=== PATIENT | female | born 1995 | race Caucasian/White ===

== ENCOUNTER 2021-02-05 00:35 | Emergency (ER) | payer OTHER ==
[~2021-02-05] VITALS: Ht 160 cm; Wt 86.2 kg
[2021-02-05 00:43] VITALS: BP 123/95
== END 2021-02-05 01:01 | disposition left against medical advice (07) ==
LOC: ER 00:37
DX: K08.89 Other specified disorders of teeth and supporting structures (principal); Z53.21 Procedure and treatment not carried out due to patient leaving prior to being seen by health care provider

== ENCOUNTER 2023-12-28 12:15 | Observation (INO) | payer SELFPAY ==
--- NOTE | 2023-12-28 13:22 | DVH ---
BIOPHYSICAL PROFILE HISTORY: Decreased movement TECHNIQUE: Multiple transabdominal real-time grayscale sonographic images through the gravid uterus of the fetus with duplex Doppler color flow and M-mode spectral analysis FINDINGS: BIOPHYSICAL PROFILE: breathing score: 2 movement score: 2 tone score: 2 Quantitative ALEX score: 2 (ALEX: 17.3 Cm.) Total score: 8/8 Single live fetus in cephalic presentation. heart rate 144 beats per minute. Anterior placenta without previa or abruption. Placental calcifications are noted. IMPRESSION: 1. Biophysical profile score: 8/8 HS:Y
--- NOTE | 2023-12-28 13:32 | DVH ---
LIMITED OB ULTRASOUND > 14 WKS: HISTORY: NO care TECHNIQUE: Multiple real-time grayscale images of the gravid uterus with duplex Doppler color flow an d M-mode spectral analysis. TRANSDUCER: Transabdominal COMPARISON: None FINDINGS: IUP single live fetus at 36 weeks and 0 days based on composite averages of the BPD, head circumferen ce, abdominal circumference and femur length Estimated weight 2702 grams heart rate 150 beats per minute ALEX 17.3 cm Cervix is not visualized Cephalic Presentation Grade 3, anterior Placenta without previa or abruption. IMPRESSION: IUP single live fetus at 36 weeks and 0 days AUA corresponding to an GREGORIO of 01/25/2024
[2023-12-28 13:57] LABS: Urine Bacteria None Seen /hpf (None Seen)
[2023-12-28 14:06] LABS: Basophils # (auto) 0 10 ^3/uL (0-0.2); Basophils % (auto) 0.3 % (0.0-2.0); Eosinophils # (auto) 0 10 ^3/uL (0-0.8); Eosinophils % (auto) 0.3 % (0.0-7.0); Hematocrit 34.4 % (36.0-46.0); Hemoglobin 11.4 g/dL (12.2-16.2); Lymphocytes # (auto) 1.1 10 ^3/uL (0.4-5.4); Lymphocytes % (auto) 10.6 % (10.0-50.0); Mean Corpuscular Hemoglobin 27.5 pg (28.0-32.0); Mean Corpuscular Volume 83.4 fL (80.0-100.0); Monocytes # (auto) 0.8 10 ^3/uL (0-1.3); Monocytes % (auto) 7.7 % (0.0-12.0); Neutrophils # (auto) 8.6 10 ^3/uL (1.6-8.6); Neutrophils % (auto) 81.1 % (37.0-80.0); Platelet Count (auto) 277 10^3/uL (140-450); Red Blood Cells 4.13 10^6/uL (4.0-5.20); White Blood Cell 10.6 10^3/uL (4.4-10.8)
[2023-12-28 14:19] LABS: Alanine Aminotransferase 10 U/L (7-40); Alkaline Phosphatase 156 U/L (46-116); Anion Gap 9 (5-15); Aspartate Aminotransferase 15 U/L (13-40); BUN/Creatinine Ratio 15.7 (10.0-20.0); Bilirubin, Total 0.5 mg/dL (0.2-1.0); Blood Urea Nitrogen 8 mg/dL (9-23); Calcium 9.5 mg/dL (8.7-10.4); Carbon Dioxide 20 mmol/L (20-31); Chloride 109 mmol/L (98-107); Glucose 86 mg/dL (74-106); Potassium 3.7 mmol/L (3.5-5.1); Sodium 138 mmol/L (136-145); Total Protein 6.3 g/dL (5.7-8.2); Uric Acid 5.6 mg/dL (3.1-7.8)
[2023-12-28 14:23] LABS: INR 0.98 (0.9-1.15); Partial Thromboplastin Time 25.9 SEC (24.5-34.5); Prothrombin Time 10.4 sec (9.3-11.8)
[2023-12-28 14:24] LABS: Urine Blood Negative /uL (Negative); Urine Clarity Turbid (Clear); Urine Color Yellow (Yellow); Urine Mucus FEW (None Seen); Urine Protein, UAD 1+ (Negative); Urine Specific Gravity 1.031 (1.001-1.035); Urine Urobilinogen Normal (Negative); Urine WBC 21 /hpf (0 - 5)
[2023-12-28 14:45] LABS: Amphetamine Screen, Urine Neg (NEGATIVE); Barbiturate Scree,Urine Neg (NEGATIVE); Benzodiazephine Screen, Urine Neg (NEGATIVE); Cannabinoid Screen, Urine Neg (NEGATIVE); Cocaine Screen, Urine Neg (NEGATIVE); Opiate Scree,Urine Neg (NEGATIVE); Phencyclidine Screen, Urine Neg (NEGATIVE)
[2023-12-28] MEDS ORDERED: PREN-96 PO (16:42)
--- NOTE | 2023-12-28 17:13 | DVHDS2 ---
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 Patient was counseled about treatment plan, medications, possible side effects, patientverbalized understanding. All questions were answered to the best of my ability. This discharge took greater then 30 minutes in planning, reviewing d ocumentation, counseling the patient, and discussing with other team members." TASHA MURO DO Dec 28, 2023 17:13
[2023-12-29 07:06] LABS: RPR Non Reactive (Non Reactive)
[2023-12-29 11:07] LABS: Rubella Antibodies, IgG 0.91 index (Immune >0.99)
== END 2023-12-28 16:48 | disposition home or self-care (01) ==
LOC: LDRP 12:15
PROVIDERS: ADMIT Obstetrics & Gynecology; ATTEND Obstetrics & Gynecology
DX: O36.8130 Decreased fetal movements, third trimester, not applicable or unspecified (principal); O47.1 False labor at or after 37 completed weeks of gestation; Z3A.39 39 weeks gestation of pregnancy; Z86.2 Personal history of diseases of the blood and blood-forming organs and certain disorders involving the immune mechanism; Z79.899 Other long term (current) drug therapy
CPT/HCPCS: 36415; 59025; 76805; 76818; 80053; 80307; 81001; 81002; 83036; 84550; 85025; 85610; 85730; 86592; 86703; 86762; 86780; 86803; 86850; 86900; 86901; 87340; 94760; G0378

== ENCOUNTER 2024-01-01 17:35 | Inpatient (IN) | payer MEDICAID ==
[~2024-01-01] VITALS: Ht 162.6 cm; Wt 96.2 kg
[~2024-01-01 17:35] MED LIST: PREN-96 PO
[2024-01-01] MEDS ORDERED: PENICILLIN G POT 5MIL/D5 50ML 50 ML IV ONE (17:45)
[2024-01-01] MEDS ORDERED: LACTATED RINGER'S 1,000 ML IV SCH (17:45)
[2024-01-01] MEDS ORDERED: BUTORPHANOL TARTRATE 2 MG/1 ML VIAL IV PRN ×2 (17:45)
[2024-01-01] MEDS ORDERED: fentaNYL CITRATE 100 MCG/2 ML VL IV ONE (18:00)
[2024-01-01] MEDS ORDERED: NALOXONE HCL 0.4 MG/ML VIAL IV ONE (18:00)
[2024-01-01] MEDS ORDERED: ePHEDrine SULFATE 50 MG/ML AMP IV ONE (18:00)
[2024-01-01] MEDS ORDERED: ROPIVACAINE HCL 0 ML ONE (18:13)
[2024-01-01 18:26] LABS: Basophils # (auto) 0 10 ^3/uL (0-0.2); Basophils % (auto) 0.5 % (0.0-2.0); Eosinophils # (auto) 0.1 10 ^3/uL (0-0.8); Eosinophils % (auto) 0.9 % (0.0-7.0); Hematocrit 34.2 % (36.0-46.0); Hemoglobin 11.4 g/dL (12.2-16.2); Lymphocytes # (auto) 1.4 10 ^3/uL (0.4-5.4); Lymphocytes % (auto) 17.4 % (10.0-50.0); Mean Corpuscular Hemoglobin 27.4 pg (28.0-32.0); Mean Corpuscular Hgb Conc. 33.4 g/dL (32.0-36.0); Mean Corpuscular Volume 82.2 fL (80.0-100.0); Monocytes # (auto) 0.7 10 ^3/uL (0-1.3); Monocytes % (auto) 8.3 % (0.0-12.0); Neutrophils % (auto) 72.9 % (37.0-80.0); Nucleated Red Blood Cells % 0.1 %; Platelet Count (auto) 287 10^3/uL (140-450); Red Blood Cells 4.16 10^6/uL (4.0-5.20); Red Cell Distribution Width 15.4 % (11.8-14.3); White Blood Cell 8.2 10^3/uL (4.4-10.8)
[2024-01-01] MEDS: LACT. RINGERS/OXYTOCIN 20UNITS 500 ML IV ONE ×2 (18:36→19:38)
[2024-01-01 18:48] LABS: Albumin 3.7 g/dL (3.2-4.8); Alkaline Phosphatase 165 U/L (46-116); Anion Gap 10 (5-15); Aspartate Aminotransferase 11 U/L (13-40); BUN/Creatinine Ratio 10.7 (10.0-20.0); Bilirubin, Total 0.3 mg/dL (0.2-1.0); Blood Urea Nitrogen 6 mg/dL (9-23); Calcium 9.6 mg/dL (8.7-10.4); Carbon Dioxide 21 mmol/L (20-31); Chloride 107 mmol/L (98-107); Glucose 79 mg/dL (74-106); Potassium 3.5 mmol/L (3.5-5.1); Sodium 138 mmol/L (136-145); Total Protein 6.1 g/dL (5.7-8.2)
[2024-01-01 18:52] LABS: INR 0.94 (0.9-1.15)
[2024-01-01] MEDS: PHISODERM TOP SOLN 240ML BTL TOP PRN (19:10)
[2024-01-01] MEDS: DERMOPLAST 60ML BOTTLE TOP PRN (19:10)
[2024-01-01] MEDS: LIDOCAINE 2%HCL (LOCAL ANESTH.) INJ 20ML MDV IJ PRN (19:11)
[2024-01-01] MEDS: WITCH HAZEL-GLYCERIN PAD TOP PRN (19:11)
[2024-01-01 19:23] LABS: Alanine Aminotransferase < 9 U/L (7-40)
[2024-01-01 19:30] LABS: Amphetamine Screen, Urine Neg (NEGATIVE); Barbiturate Scree,Urine Neg (NEGATIVE); Benzodiazephine Screen, Urine Neg (NEGATIVE); Cannabinoid Screen, Urine Neg (NEGATIVE); Cocaine Screen, Urine Neg (NEGATIVE); Opiate Scree,Urine Neg (NEGATIVE); Phencyclidine Screen, Urine Neg (NEGATIVE)
[2024-01-01 19:34] LABS: Urine Bacteria FEW /hpf (None Seen); Urine Blood TRACE /uL (Negative); Urine Budding Yeast OCCASIONAL /hpf (None Seen); Urine Clarity Clear (Clear); Urine Color Colorless (Yellow); Urine Protein, UAD Negative (Negative); Urine Specific Gravity 1.005 (1.001-1.035); Urine Urobilinogen Normal (Negative); Urine WBC 3 /hpf (0 - 5)
--- NOTE | 2024-01-01 19:54 | DVHHP2 ---
OB CC & HPI Date Date of Admission: Jan 01, 2024 Patient Identification: : 2 Para: 1 EDC: Jan 01, 2024 EGA: 40.0wks Chief Complaints: Reason for admission: active labor, rupture of membranes History of Present Complaints 28yo IUP@40.0wks presents in active labor and SROM. Pt reports UCs Q3 min and wants an epidural. Denies VB/MOORE/vision changes/RUQ pain. Endorses +FM. No care with this , has been taking PNV daily. Dating based on LMP not c/w third trimester sono on 12/28/23, GBS unknown. OB hx: x1, uncomplicated Past Medical History Cardiac: No pertinent Hx Pulmonary: No pertinent Hx Central Nervous System: No pertinent Hx GI: No pertinent Hx Hemotology/Oncology: No pertinent Hx Hepatobiliary: No pertinent Hx Psychiatric: No pertinent Hx Musculoskeletal: No pertinent Hx Rheumotologic: No pertinent Hx Infectious Disease: No peritnent Hx ENT: No pertinent Hx Renal/: No pertinent Hx Endocrine: No pertinent Hx Dermatology: No pertinent Hx Past Surgical History: Other (tonsilectomy) OB History OB History Care: None Obstetrical Complications: Other (unknown) Medical Complications: None Allergies: Coded Allergies: NO KNOWN ALLERGIES (Unverified , 11/26/10) Allergies NKDA Home Meds Active Scripts Docusate Sodium (Colace) 100 Mg Cap, 1 CAP PO BID PRN, #60 CAP 2 Refills Prov:LUZ FAIRCHILD [facility] 01/01/24 Ibuprofen (Ibuprofen) 800 Mg Tab, 1 TAB PO TID, #90 TAB Prov:LUZ FAIRCHILD [facility] 01/01/24 Vit W/ Ferrous Fumara ( One Daily) Daily Tab, 1 TAB PO DAILY, #90 TAB 3 Refills Prov:LUZ FAIRCHILD [facility] 01/01/24 Current Medications Current Medications Medications (Trade) Dose Ordered Sig/Jd Route PRN Reason Start Time Stop Time Status Last Admin Lactated Ringer's 1,000 ml @ 125 mls/hr Q8H IV 01/01/24 17:45 Penicillin G Potassium 7222619 units/Dextrose 50 ml @ 100 mls/hr Q4H IV 01/01/24 21:45 [place]are (Tucks) 1 pad PRN PRN TOP PERINEAL AREA DISCOMFORT 01/01/24 17:45 01/01/24 19:11 Sodium Lauryl Sulfate (Phisoderm) 240 ml PRN PRN TOP PERINEAL AREA DISCOMFORT 01/01/24 17:45 01/01/24 19:10 Benzocaine (Dermoplast) 1 applic PRN PRN TOP PERINEAL AREA DISCOMFORT 01/01/24 17:45 01/01/24 19:10 Butorphanol Tartrate (Stadol Injection) 1 mg Q4HPRN PRN IV MODERATE PAIN (4-6 PAIN SCALE) 01/01/24 17:45 Butorphanol Tartrate (Stadol Injection) 2 mg Q4HPRN PRN IV SEVERE PAIN (7-10 PAIN SCALE) 01/01/24 17:45 Lidocaine HCl (Xylocaine) 20 ml ONCE PRN IJ PERINEAL AREA DISCOMFORT 01/01/24 17:45 01/01/24 19:11 Family & Social History Family/Social History Past Family/Social History: denies FMH and SOC HIV negative Hep C negative Blood Type: A+ Rubella: not immune RPR/VDRL: Negative GBS Status: Unknown HBsAG: Negative Review of Systems Constitutional: No symptom reported Ears, Nose, & Throat: No symptom reported Eyes: No symptom reported Pulmonary/Respiratory: No symptom reported Cardiovascular: No symptom reported Gastrointestinal: No symptom reported Genitourinary: No symptom reported Musculoskeletal: No symptom reported Skin: No symptom reported Psychiatric: No symptom reported Endocrine: No symptom reported Hemotologic/Lymphatic: No symptom reported OB Admission Exam Physical Exam Vitals: VSS, see chart HEENT: TMs Normal, Fontanelles Normal, Nasal Mucosa Normal, Eyes non-injected, Oropharynx Normal, PERRLA, Moist Membranes, EOMI Heart: Rhythm Normal Lungs: Clear Abdomen: Gravid Extremities: Normal Reflexes: Normal Pelvic Exam: SVE by RN: 6/80/-2, vertex Membranes: Ruptured Amniotic Fluid: Clear Heart Rate: 130's Accelerations: No Accelerations Decelerations: Variable Decelerations 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
--- NOTE | 2024-01-01 19:55 | LDN2 ---
Labor and Delivery Note Date 01/01/24 Age 28 2 Para 2 now AB 0 EDC 01/01/24 EGA 40.0wks Diagnosis no care, SROM, active labor, then Vaginal Delivery: VTX Vacuum Assisted: No Placenta: Spontaneous Sex: Female Weight pending Apgars 8/9 Nuchal Cord Present: Yes (tight x1) Nuchal Cord Transected: No Amniotic Fluid: Clear Anesthesia local Episiotomy: No Extension: No Lacerations: Yes (right/left labial and perineal abrasion repaired) Repaired with 3-0 vicryl EBL QBL 100ml Complications none Conditions stable [place] Delivery Summary At 1821 this 28yo now delivered a viable Female infant by w/ APGARS 8/9. EL with compound presentation and tight Nuchal x1 with cord reduced before . Infant placed skin to skin on pts chest. Cord clamped and cut after pulsation ceased. Cord blood not collected, maternal blood type A+. Intact 3- vessel cord placenta delivered spontaneously, Gao, marginal cord insertion. Pitocin IV bolus started. Placenta sent to pathology. Patient had local anesthesia. Cervix/vagina inspected (intact), right/left labial lacerations and bleeding perineal abrasion present which were repaired with 3-0 vicryl suture. Fundus at U, firm, midline, and light lochia. QBL 100ml. VSS. Count correct x2. Patient to care and baby to couplet care, both stable. LUZ FA[facility]CHILD [facility] Jan 01, 2024 19:55
[2024-01-01] MEDS ORDERED: PREN-96 PO (21:10)
[2024-01-01] MEDS ORDERED: IBUP-1456 PO (21:10)
[2024-01-01] MEDS ORDERED: DOCU-94 PO (21:10)
[2024-01-01] MEDS ORDERED: ACETAMINOPHEN 325 MG TAB PO PRN (21:15)
[2024-01-01] MEDS ORDERED: PENICILLIN G POTASSIUM 2,500,000 UNITS in D5W 5% 50 ML IV SCH (21:45)
[2024-01-01] MEDS ORDERED: DOCUSATE SOD 100 MG CAP PO SCH (22:00)
[2024-01-02 03:00] VITALS: BP 118/72; PULSE 82; RESP 18; TEMP 98.5; O2SAT 97
--- NOTE | 2024-01-02 03:14 | DVHPN2 ---
Progress Note Date Seen: Jan 02, 2024 Subjective S: bleeding is less, eating food without issues, denies lightheaded/dizziness, pain well controlled with oral medications, no concerns with urinating, passing flatus, no BM yet, ambulating well, well vital signs Vital Sign Date Time Temp Pulse Resp B/P (MAP) Pulse Ox O2 Delivery O2 Flow Rate FiO2 01/01/24 21:00 Room Air Total Intake and Output 01/01/24 01/01/24 01/02/24 15:00 23:00 07:00 Output Total 1350 ml 650 ml Balance -1350 ml -650 ml medications Current Medications Medications Dose Ordered Sig/Jd Route Start Time Stop Time Status Last Admin Dose Admin [place]are 1 pad PRN PRN TOP 01/01/24 17:45 01/01/24 19:11 1 PAD Sodium Lauryl Sulfate 240 ml PRN PRN TOP 01/01/24 17:45 01/01/24 19:10 240 ML Benzocaine 1 applic PRN PRN TOP 01/01/24 17:45 01/01/24 19:10 1 APPLIC Ibuprofen 600 mg Q6HP PRN PO 01/01/24 21:15 Acetaminophen 650 mg Q6HPRN PRN PO 01/01/24 21:15 Docusate Sodium 200 mg HS PO 01/01/24 22:00 Prenat Multivit/ [place]/Iron/Folic Ac 1 DAILY PO 01/02/24 10:00 laboratory and microbiology Laboratory Tests 01/01/24 18:10 Test 01/01/24 18:10 Range/Units Serum Glucose 79 74-106 mg/dL Objective O: VSS Chest: heart sounds normal and lung sounds clear bilaterally Abd: soft, non-tender, fundus at U/firm/midline, active bowel sounds, no rebound or guarding Perineum: intact, no erythema/edema noted Ext: Non-tender, No edema, 2+ BLE DTRs Lochia: minimal See lab results Problems(with codes): (1) (normal spontaneous vaginal delivery) (2) Obstetric labial laceration, delivered, current hospitalization Assessment/Plan A: 28yo now PPD#1 s/p Rh+ Rubella Immune Pain control with PO medications Bowel regimen P: Continue with routine PP care Reevaluate for D/C tmrw Plan discussed with: Patient LUZ FA[facility]CHILD [facility] Jan 02, 2024 03:14
[2024-01-02 07:30] VITALS: BP 98/64; PULSE 77; RESP 15; TEMP 97.4; O2SAT 99
[2024-01-02 07:57] LABS: Basophils # (auto) 0.1 10 ^3/uL (0-0.2); Basophils % (auto) 1.2 % (0.0-2.0); Eosinophils # (auto) 0.1 10 ^3/uL (0-0.8); Hematocrit 34.9 % (36.0-46.0); Hemoglobin 11.6 g/dL (12.2-16.2); Lymphocytes # (auto) 1.5 10 ^3/uL (0.4-5.4); Lymphocytes % (auto) 15.4 % (10.0-50.0); Mean Corpuscular Hemoglobin 27.5 pg (28.0-32.0); Mean Corpuscular Hgb Conc. 33.3 g/dL (32.0-36.0); Mean Corpuscular Volume 82.6 fL (80.0-100.0); Monocytes # (auto) 0.9 10 ^3/uL (0-1.3); Monocytes % (auto) 8.9 % (0.0-12.0); Neutrophils % (auto) 73.5 % (37.0-80.0); Nucleated Red Blood Cells % 0.1 %; Platelet Count (auto) 255 10^3/uL (140-450); Red Blood Cells 4.22 10^6/uL (4.0-5.20); Red Cell Distribution Width 15.5 % (11.8-14.3); White Blood Cell 9.5 10^3/uL (4.4-10.8)
[2024-01-02 08:06] LABS: RPR Non Reactive (Non Reactive)
[2024-01-02] MEDS: PRENATAL VITAMIN TAB PO SCH (09:32)
[2024-01-02 11:22] VITALS: BP 102/68; PULSE 75; RESP 16; TEMP 97.8; O2SAT 99
[2024-01-02 15:23] VITALS: BP 97/52; PULSE 69; RESP 17; TEMP 97.9; O2SAT 95
[2024-01-02] MEDS ORDERED: MEASLES, MUMPS & RUBELLA VAC(MMRII) 0.5ML SC ONE (17:00)
[2024-01-02] MEDS: IBUPROFEN 600 MG TAB PO PRN (18:48)
[2024-01-02 19:00] VITALS: BP 106/73; PULSE 79; RESP 16; TEMP 97.8; O2SAT 96
--- NOTE | 2024-01-02 19:17 | DVHDS2 ---
Obstetrics Discharge Summary Obstetrics Discharge Summary Date of Admission: Jan 01, 2024 Date of Discharge: Jan 02, 2024 Reason For Admission: Onset of Labor (SROM) Procedures: NST Intrapartum Procedures: Spontaneous vaginal deliv Procedures: Hct/date: (01/02/24), Hgb/date: (01/02/24) Operative Complicat: None Discharge Diagnosis: Term -Delivered Discharge Information: Activity (as tolerated, no heavy lifting and nothing in the vagina for 6 weeks), Diet (Routine), Medications (Rx sent), Instructions (Routine), Discharge to (Home), Accompanied by (family), Discarge date (01/02/24) LUZ FAIRCHILD CNM Jan 02, 2024 19:17
[2024-01-02 19:36] VITALS: BP 106/73; PULSE 79; RESP 16; TEMP 97.8; O2SAT 96
[2024-01-05 00:06] LABS: Chlamydia Trachomatis, NAA Positive (Negative); Neisseria gonorrhoeae, NAA Negative (Negative)
== END 2024-01-02 20:33 | disposition home or self-care (01) | DRG 560 ==
LOC: LDRP 17:35 → OBSVTOIN 17:45 → LDRP 21:52
PROVIDERS: ADMIT Nurse Practitioner Women's Health; ATTEND Nurse Practitioner Women's Health
PROC: 10E0XZZ Delivery of Products of Conception, External Approach (ICD-10-PCS; principal; 2024-01-01)
PROC: 0HQ9XZZ Repair Perineum Skin, External Approach (ICD-10-PCS; 2024-01-01)
PROC: 0UQMXZZ Repair Vulva, External Approach (ICD-10-PCS; 2024-01-01)
DX: O69.1XX0 Labor and delivery complicated by cord around neck, with compression, not applicable or unspecified (principal); Z37.0 Single live birth; O70.0 First degree perineal laceration during delivery; O71.82 Other specified trauma to perineum and vulva; Z3A.40 40 weeks gestation of pregnancy
CPT/HCPCS: 36415; 59025; 59409; 80053; 80307; 81001; 85025; 85610; 85730; 86592; 86850; 86900; 86901; 94760; 96360; 96365; 96366; G0378; J2540; J2590; J7060